=== PATIENT | female | born 1960 | race Caucasian/White ===

== ENCOUNTER 2024-08-31 14:57 | Emergency (ER) | payer OTHER ==
[~2024-08-31] VITALS: Ht 175.3 cm; Wt 64.0 kg
[2024-08-31 15:08] VITALS: O2SAT 99
[2024-08-31] MEDS: METHOCARBAMOL 500MG TABLET PO ONE (15:40)
[2024-08-31] MEDS: KETOROLAC 30MG/ML VIAL IM ONE (15:40)
[2024-08-31] MEDS: LIDOCAINE 5% PATCH TOP SCH (15:40)
[2024-08-31] MEDS ORDERED: LIDO700A30 TP (16:54)
[2024-08-31] MEDS ORDERED: IBUP-2029 MT (16:54)
[2024-08-31] MEDS ORDERED: METH-653 MT (16:54)
[2024-08-31 19:52] VITALS: BP 140/90; PULSE 94; RESP 16; TEMP 36.7; O2SAT 99
== END 2024-08-31 19:50 | disposition home or self-care (01) ==
LOC: ER 14:57
DX: M48.56XA Collapsed vertebra, not elsewhere classified, lumbar region, initial encounter for fracture (principal); I10 Essential (primary) hypertension; Z79.899 Other long term (current) drug therapy; W19.XXXA Unspecified fall, initial encounter; Y93.89 Activity, other specified; Y92.89 Other specified places as the place of occurrence of the external cause; Y99.8 Other external cause status
CPT/HCPCS: 99291; 72148; 72128; 72131; 96372; J1885